=== PATIENT | male | born 1965 | race Caucasian/White ===

== ENCOUNTER 2017-05-14 16:59 | Observation (INO) | payer SELFPAY ==
[~2017-05-14] VITALS: Ht 175.3 cm; Wt 100.0 kg
[~2017-05-14 16:59] MED LIST: AMLO5; ASPI81CH PO; ATOR40TA PO; CLOP75 PO; Cleocin HCl300 MG PO; LISI20 PO; LOSA25; LOSA50 PO; METF500 PO; METO25ER; METO50ER PO; NITR.4SL SL; PIOG30 PO; Percocet 5-3251 EACH PO
[2017-05-14 18:41] LABS: BASOPHILS ABSOLUTE AUTO 0.05 K/mm3 (0.00-0.23); BASOPHILS PERCENT AUTO 1 % (0-2); EOSINOPHILS ABSOLUTE AUTO 0.13 K/mm3 (0.00-0.68); EOSINOPHILS PERCENT AUTO 1 % (0-6); Hemoglobin 17.5 g/dL (13.5-17.5); IMMATURE GRAN ABSOLUTE AUTO 0.06 K/mm3 (0.00-0.10); IMMATURE GRAN PERCENT AUTO 1 % (0-1); LYMPHOCYTES ABSOLUTE AUTO 4.23 K/mm3 (0.84-5.20); LYMPHOCYTES PERCENT AUTO 39 % (21-46); MONOCYTES ABSOLUTE AUTO 0.79 K/mm3 (0.16-1.47); MONOCYTES PERCENT AUTO 7 % (4-13); Mean Corpuscular HGB 31.3 pg (26.0-34.0); Mean Corpuscular Volume 89 fL (80-100); Mean Platelet Volume 11.5 fL (9.1-12.4); NEUTROPHILS ABSOLUTE AUTO 5.66 K/mm3 (1.96-9.15); NEUTROPHILS PERCENT AUTO 52 % (41-73); Platelet Count 192 K/mm3 (150-400); RDW Coefficient Variation 12.6 % (11.7-14.2); RDW Standard Deviation 41.2 fL (35.1-46.3); White Blood Cell Count 10.92 K/mm3 (4.00-11.30)
[2017-05-14 18:52] LABS: Alanine Aminotransfer (ALT/SGP 106 U/L (12-78); Albumin, Blood 3.8 g/dL (3.4-5.0); Alk Phos 157 U/L (50-136); Anion Gap 9 mmol/L (6-16); Aspartate Aminotrans (AST/SGOT 45 U/L (12-37); Bilirubin, Total 0.7 mg/dL (0.1-1.0); Blood Urea Nitrogen 16 mg/dL (8-24); Bun/Creatinine Ratio 24.9 (12.0-20.0); CO2, Blood 23 mmol/L (21-32); Calcium, Blood 8.9 mg/dL (8.5-10.1); Chloride, Blood 107 mmol/L (98-108); Creatinine, Blood 0.64 mg/dL (0.60-1.20); Glomerular Filtration Rate >60 (60-); Glucose, Blood 307 mg/dL (70-99); Potassium, Blood 3.9 mmol/L (3.5-5.5); Sodium, Blood 139 mmol/L (136-145); Total Protein, Blood 7.8 g/dL (6.4-8.2); Troponin I <0.015 ng/mL (0.000-0.040)
[2017-05-15 05:42] LABS: BASOPHILS ABSOLUTE AUTO 0.04 K/mm3 (0.00-0.23); BASOPHILS PERCENT AUTO 1 % (0-2); EOSINOPHILS PERCENT AUTO 2 % (0-6); Hematocrit 45.6 % (37.0-53.0); Hemoglobin 15.8 g/dL (13.5-17.5); IMMATURE GRAN ABSOLUTE AUTO 0.04 K/mm3 (0.00-0.10); IMMATURE GRAN PERCENT AUTO 1 % (0-1); LYMPHOCYTES ABSOLUTE AUTO 2.85 K/mm3 (0.84-5.20); LYMPHOCYTES PERCENT AUTO 43 % (21-46); MONOCYTES ABSOLUTE AUTO 0.57 K/mm3 (0.16-1.47); MONOCYTES PERCENT AUTO 9 % (4-13); Mean Corpuscular HGB Conc 34.6 g/dL (31.5-36.5); Mean Corpuscular Volume 90 fL (80-100); NEUTROPHILS ABSOLUTE AUTO 2.96 K/mm3 (1.96-9.15); NEUTROPHILS PERCENT AUTO 45 % (41-73); Platelet Count 148 K/mm3 (150-400); RDW Coefficient Variation 12.8 % (11.7-14.2); RDW Standard Deviation 42.2 fL (35.1-46.3); Red Blood Cell Count 5.09 M/mm3 (4.30-5.90); White Blood Cell Count 6.56 K/mm3 (4.00-11.30)
[2017-05-15 06:13] LABS: Alanine Aminotransfer (ALT/SGP 90 U/L (12-78); Albumin, Blood 3.1 g/dL (3.4-5.0); Albumin/Globulin Ratio 0.9 (0.8-1.8); Alk Phos 147 U/L (50-136); Anion Gap 6 mmol/L (6-16); Aspartate Aminotrans (AST/SGOT 39 U/L (12-37); Bilirubin, Total 0.3 mg/dL (0.1-1.0); Blood Urea Nitrogen 15 mg/dL (8-24); Bun/Creatinine Ratio 24.1 (12.0-20.0); CO2, Blood 26 mmol/L (21-32); CPK Creatine Kinase 94 U/L (39-308); Calcium, Blood 8.2 mg/dL (8.5-10.1); Chloride, Blood 111 mmol/L (98-108); Creatine Kinase MB 1.1 ng/mL (0.0-3.6); Creatine Kinase MB Index 1.2 (0.0-4.0); Creatinine, Blood 0.62 mg/dL (0.60-1.20); Globulin, Blood 3.3 g/dL (2.2-4.0); Glomerular Filtration Rate >60 (60-); Glucose, Blood 225 mg/dL (70-99); Potassium, Blood 3.9 mmol/L (3.5-5.5); Sodium, Blood 143 mmol/L (136-145); Total Protein, Blood 6.4 g/dL (6.4-8.2); Troponin I <0.015 ng/mL (0.000-0.040)
[2017-05-16 04:07] LABS: BASOPHILS ABSOLUTE AUTO 0.03 K/mm3 (0.00-0.23); BASOPHILS PERCENT AUTO 0 % (0-2); EOSINOPHILS PERCENT AUTO 1 % (0-6); Hematocrit 44.1 % (37.0-53.0); Hemoglobin 15.1 g/dL (13.5-17.5); IMMATURE GRAN ABSOLUTE AUTO 0.06 K/mm3 (0.00-0.10); IMMATURE GRAN PERCENT AUTO 1 % (0-1); LYMPHOCYTES ABSOLUTE AUTO 2.57 K/mm3 (0.84-5.20); LYMPHOCYTES PERCENT AUTO 29 % (21-46); MONOCYTES PERCENT AUTO 8 % (4-13); Mean Corpuscular HGB 30.9 pg (26.0-34.0); Mean Corpuscular HGB Conc 34.2 g/dL (31.5-36.5); Mean Corpuscular Volume 90 fL (80-100); Mean Platelet Volume 11.6 fL (9.1-12.4); NEUTROPHILS PERCENT AUTO 61 % (41-73); Platelet Count 157 K/mm3 (150-400); RDW Standard Deviation 43.3 fL (35.1-46.3); Red Blood Cell Count 4.88 M/mm3 (4.30-5.90); White Blood Cell Count 8.96 K/mm3 (4.00-11.30)
[2017-05-16 04:33] LABS: Anion Gap 5 mmol/L (6-16); Blood Urea Nitrogen 10 mg/dL (8-24); CO2, Blood 26 mmol/L (21-32); Calcium, Blood 8.4 mg/dL (8.5-10.1); Chloride, Blood 110 mmol/L (98-108); Creatinine, Blood 0.71 mg/dL (0.60-1.20); Glomerular Filtration Rate >60 (60-); Glucose, Blood 204 mg/dL (70-99); Sodium, Blood 141 mmol/L (136-145)
[2017-05-16] MEDS ORDERED: LEVEMIR FL100 UNIT/1 SC (14:30)
[2017-05-16] MEDS ORDERED: INSU100I6 SC (14:35)
[2017-05-16] MEDS ORDERED: PANT40 (14:40)
== END 2017-05-16 16:44 | disposition home or self-care (01) ==
LOC: ER 16:59 → ERHOLD 17:00 → PCU 17:00 → ERHOLD 17:00 → ER 17:00 → PCU 05-15 15:16
PROVIDERS: Emergency Medicine; Internal Medicine
DX: R07.9 Chest pain, unspecified (principal); I25.10 Atherosclerotic heart disease of native coronary artery without angina pectoris; I25.2 Old myocardial infarction; I10 Essential (primary) hypertension; E11.9 Type 2 diabetes mellitus without complications; E78.00 Pure hypercholesterolemia, unspecified; R79.89 Other specified abnormal findings of blood chemistry; F17.210 Nicotine dependence, cigarettes, uncomplicated; Z79.82 Long term (current) use of aspirin; Z79.84 Long term (current) use of oral hypoglycemic drugs; Z88.2 Allergy status to sulfonamides; Z88.8 Allergy status to other drugs, medicaments and biological substances; Z95.5 Presence of coronary angioplasty implant and graft; Z79.01 Long term (current) use of anticoagulants; Z79.899 Other long term (current) drug therapy
CPT/HCPCS: 36415; 71046; 76705; 80048; 80053; 82550; 82553; 82947; 83690; 84484; 85025; 93005; 93010; 93454; 96361; 96372; 96374; 99152; 99153; 99285; C1769; C1894; G0378; J0280; J1644; J1650; J1815; J2250; J2405; J2785; J3010; J3480; J7030; Q9967

== ENCOUNTER 2017-12-01 15:21 | Inpatient (IN) | payer OTHER ==
[~2017-12-01] VITALS: Ht 182.9 cm; Wt 104.3 kg
[~2017-12-01 15:21] MED LIST changes: +INSU100I6 SC; +LEVEMIR FL100 UNIT/1 SC; +Metformin HCl500 MG PO; +PANT40 PO
[2017-12-01 15:44] LABS: BASOPHILS ABSOLUTE AUTO 0.05 K/mm3 (0.00-0.23); BASOPHILS PERCENT AUTO 0 % (0-2); EOSINOPHILS ABSOLUTE AUTO 0.04 K/mm3 (0.00-0.68); EOSINOPHILS PERCENT AUTO 0 % (0-6); Hemoglobin 17.1 g/dL (13.5-17.5); IMMATURE GRAN ABSOLUTE AUTO 0.06 K/mm3 (0.00-0.10); IMMATURE GRAN PERCENT AUTO 0 % (0-1); LYMPHOCYTES PERCENT AUTO 24 % (21-46); MONOCYTES ABSOLUTE AUTO 0.91 K/mm3 (0.16-1.47); MONOCYTES PERCENT AUTO 6 % (4-13); Mean Corpuscular HGB 30.9 pg (26.0-34.0); Mean Corpuscular HGB Conc 34.2 g/dL (31.5-36.5); Mean Corpuscular Volume 90 fL (80-100); Mean Platelet Volume 10.5 fL (9.1-12.4); NEUTROPHILS ABSOLUTE AUTO 9.89 K/mm3 (1.96-9.15); NEUTROPHILS PERCENT AUTO 69 % (41-73); Platelet Count 193 K/mm3 (150-400); RDW Coefficient Variation 13.1 % (11.7-14.2); RDW Standard Deviation 43.8 fL (35.1-46.3); Red Blood Cell Count 5.53 M/mm3 (4.30-5.90); White Blood Cell Count 14.45 K/mm3 (4.00-11.30)
[2017-12-01 15:57] LABS: International Normalized Ratio 1.04; Prothrombin Time Results 10.7 Sec (9.7-11.5)
[2017-12-01 16:04] LABS: Alanine Aminotransfer (ALT/SGP 65 U/L (12-78); Albumin, Blood 3.9 g/dL (3.4-5.0); Alk Phos 92 U/L (50-136); Anion Gap 7 mmol/L (6-16); Aspartate Aminotrans (AST/SGOT 88 U/L (12-37); Bilirubin, Total 0.8 mg/dL (0.1-1.0); Blood Urea Nitrogen 10 mg/dL (8-24); Bun/Creatinine Ratio 12.2 (12.0-20.0); CO2, Blood 26 mmol/L (21-32); Calcium, Blood 8.8 mg/dL (8.5-10.1); Chloride, Blood 110 mmol/L (98-108); Creatinine, Blood 0.82 mg/dL (0.60-1.20); Globulin, Blood 3.9 g/dL (2.2-4.0); Glomerular Filtration Rate >60 (60-); Glucose, Blood 107 mg/dL (70-99); Potassium, Blood 3.8 mmol/L (3.5-5.5); Sodium, Blood 143 mmol/L (136-145); Total Protein, Blood 7.8 g/dL (6.4-8.2); Troponin I 0.017 ng/mL (0.000-0.040)
[2017-12-01] MEDS ORDERED: AMLO10 PO (19:46)
[2017-12-01 20:36] LABS: Source, Urine Clean Catch
[2017-12-01 20:43] LABS: Bilirubin, Urine Neg (Neg); Blood, Urine Neg (Neg); Glucose Qualitative, Urine Neg (Neg); Ketones, Urine Neg (Neg); Leukocyte Esterase, Urine Neg (Neg); Nitrite, Urine Neg (Neg); Protein, Urine 1+ (Neg); Urobilinogen, Urine NORM (Normal)
[2017-12-01 20:55] LABS: U Amphetamine Screen Not Detected; U Barbituate Screen Not Detected; U Benzodiazapine Screen Not Detected; U Buprenorphine Screen Not Detected; U Cannabinoids Screen Not Detected; U Cocaine Screen Not Detected; U Methadone Screen Not Detected; U Methamphetamine Screen Not Detected; U Opiates Screen Not Detected; U Oxycodone Screen Not Detected; U Phencyclidine Screen Not Detected; U Propoxyphene Screen Not Detected
[2017-12-01 20:56] LABS: Appearance, Urine Hazy (Clear); Color, Urine Yellow (P-Yellow); White Blood Cells, Urine 0-2 /hpf (0-5)
[2017-12-01 20:57] LABS: Amorphous Light (0-Heavy); Bacteria Rare /hpf; Red Blood Cells, Urine Not Seen /hpf (0-2); Squamous Epithelial Cells Few /hpf (Few)
[2017-12-02 05:57] LABS: BASOPHILS ABSOLUTE AUTO 0.04 K/mm3 (0.00-0.23); BASOPHILS PERCENT AUTO 0 % (0-2); EOSINOPHILS ABSOLUTE AUTO 0.06 K/mm3 (0.00-0.68); EOSINOPHILS PERCENT AUTO 1 % (0-6); Hematocrit 45.5 % (37.0-53.0); Hemoglobin 15.3 g/dL (13.5-17.5); IMMATURE GRAN ABSOLUTE AUTO 0.03 K/mm3 (0.00-0.10); IMMATURE GRAN PERCENT AUTO 0 % (0-1); LYMPHOCYTES ABSOLUTE AUTO 3.17 K/mm3 (0.84-5.20); LYMPHOCYTES PERCENT AUTO 33 % (21-46); MONOCYTES ABSOLUTE AUTO 0.71 K/mm3 (0.16-1.47); MONOCYTES PERCENT AUTO 7 % (4-13); Mean Corpuscular HGB 30.8 pg (26.0-34.0); Mean Corpuscular HGB Conc 33.6 g/dL (31.5-36.5); Mean Corpuscular Volume 92 fL (80-100); NEUTROPHILS ABSOLUTE AUTO 5.57 K/mm3 (1.96-9.15); NEUTROPHILS PERCENT AUTO 58 % (41-73); Platelet Count 169 K/mm3 (150-400); RDW Coefficient Variation 13.2 % (11.7-14.2); RDW Standard Deviation 44.9 fL (35.1-46.3); Red Blood Cell Count 4.96 M/mm3 (4.30-5.90); White Blood Cell Count 9.58 K/mm3 (4.00-11.30)
[2017-12-02 06:27] LABS: Alanine Aminotransfer (ALT/SGP 61 U/L (12-78); Albumin, Blood 3.3 g/dL (3.4-5.0); Albumin/Globulin Ratio 0.9 (0.8-1.8); Alk Phos 73 U/L (50-136); Anion Gap 7 mmol/L (6-16); Aspartate Aminotrans (AST/SGOT 166 U/L (12-37); Bilirubin, Total 0.9 mg/dL (0.1-1.0); Blood Urea Nitrogen 9 mg/dL (8-24); Bun/Creatinine Ratio 12.5 (12.0-20.0); CHOL/HDL RATIO 4.5; CO2, Blood 23 mmol/L (21-32); Chloride, Blood 113 mmol/L (98-108); Cholesterol 145 mg/dL (50-200); Creatinine, Blood 0.72 mg/dL (0.60-1.20); Globulin, Blood 3.6 g/dL (2.2-4.0); Glomerular Filtration Rate >60 (60-); Glucose, Blood 110 mg/dL (70-99); HDL Cholesterol 32 mg/dL (>39); LDL/HDL RATIO 2.8; Low Density Lipoprotein Chol 89 mg/dL (0-110); Potassium, Blood 3.8 mmol/L (3.5-5.5); Sodium, Blood 143 mmol/L (136-145); Total Protein, Blood 6.9 g/dL (6.4-8.2); Triglycerides 122 mg/dL (30-160); Very Low Density Lipoprot Chol 24 mg/dL (6-32)
[2017-12-03 06:07] LABS: BASOPHILS ABSOLUTE AUTO 0.05 K/mm3 (0.00-0.23); BASOPHILS PERCENT AUTO 1 % (0-2); EOSINOPHILS ABSOLUTE AUTO 0.08 K/mm3 (0.00-0.68); EOSINOPHILS PERCENT AUTO 1 % (0-6); Hematocrit 47.9 % (37.0-53.0); IMMATURE GRAN ABSOLUTE AUTO 0.03 K/mm3 (0.00-0.10); IMMATURE GRAN PERCENT AUTO 0 % (0-1); LYMPHOCYTES ABSOLUTE AUTO 3.48 K/mm3 (0.84-5.20); LYMPHOCYTES PERCENT AUTO 39 % (21-46); MONOCYTES ABSOLUTE AUTO 0.76 K/mm3 (0.16-1.47); MONOCYTES PERCENT AUTO 8 % (4-13); Mean Corpuscular HGB 30.8 pg (26.0-34.0); Mean Corpuscular HGB Conc 33.4 g/dL (31.5-36.5); Mean Corpuscular Volume 92 fL (80-100); Mean Platelet Volume 11.3 fL (9.1-12.4); NEUTROPHILS ABSOLUTE AUTO 4.62 K/mm3 (1.96-9.15); NEUTROPHILS PERCENT AUTO 51 % (41-73); Platelet Count 176 K/mm3 (150-400); RDW Standard Deviation 44.2 fL (35.1-46.3); Red Blood Cell Count 5.19 M/mm3 (4.30-5.90); White Blood Cell Count 9.02 K/mm3 (4.00-11.30)
[2017-12-03 06:39] LABS: Anion Gap 10 mmol/L (6-16); Blood Urea Nitrogen 12 mg/dL (8-24); Bun/Creatinine Ratio 15.3 (12.0-20.0); CO2, Blood 23 mmol/L (21-32); Calcium, Blood 8.5 mg/dL (8.5-10.1); Chloride, Blood 110 mmol/L (98-108); Creatinine, Blood 0.78 mg/dL (0.60-1.20); Glomerular Filtration Rate >60 (60-); Glucose, Blood 94 mg/dL (70-99); Potassium, Blood 3.8 mmol/L (3.5-5.5); Sodium, Blood 143 mmol/L (136-145)
[2017-12-03 11:05] LABS: Source, Urine Clean Catch
[2017-12-03 11:21] LABS: Appearance, Urine Clear (Clear); Bilirubin, Urine Neg (Neg); Blood, Urine 4+ (Neg); Color, Urine Yellow (P-Yellow); Glucose Qualitative, Urine Neg (Neg); Ketones, Urine Neg (Neg); Leukocyte Esterase, Urine Neg (Neg); Nitrite, Urine Neg (Neg); Protein, Urine 1+ (Neg); Specific Gravity, Urine 1.015 (1.003-1.022); Urobilinogen, Urine 2+ (Normal)
[2017-12-03 12:32] LABS: Bacteria Few /hpf; Squamous Epithelial Cells Few /hpf (Few)
[2017-12-10 05:00] LABS: BASOPHILS ABSOLUTE AUTO 0.05 K/mm3 (0.00-0.23); BASOPHILS PERCENT AUTO 1 % (0-2); EOSINOPHILS ABSOLUTE AUTO 0.15 K/mm3 (0.00-0.68); EOSINOPHILS PERCENT AUTO 2 % (0-6); Hematocrit 45.6 % (37.0-53.0); Hemoglobin 15.3 g/dL (13.5-17.5); IMMATURE GRAN ABSOLUTE AUTO 0.05 K/mm3 (0.00-0.10); IMMATURE GRAN PERCENT AUTO 1 % (0-1); LYMPHOCYTES ABSOLUTE AUTO 2.89 K/mm3 (0.84-5.20); LYMPHOCYTES PERCENT AUTO 30 % (21-46); MONOCYTES ABSOLUTE AUTO 1.01 K/mm3 (0.16-1.47); MONOCYTES PERCENT AUTO 10 % (4-13); Mean Corpuscular HGB 31.1 pg (26.0-34.0); Mean Corpuscular HGB Conc 33.6 g/dL (31.5-36.5); Mean Corpuscular Volume 93 fL (80-100); Mean Platelet Volume 10.9 fL (9.1-12.4); NEUTROPHILS ABSOLUTE AUTO 5.59 K/mm3 (1.96-9.15); NEUTROPHILS PERCENT AUTO 57 % (41-73); Platelet Count 177 K/mm3 (150-400); RDW Coefficient Variation 12.3 % (11.7-14.2); RDW Standard Deviation 42.3 fL (35.1-46.3); Red Blood Cell Count 4.92 M/mm3 (4.30-5.90); White Blood Cell Count 9.74 K/mm3 (4.00-11.30)
[2017-12-10 05:38] LABS: Anion Gap 6 mmol/L (6-16); Blood Urea Nitrogen 17 mg/dL (8-24); Bun/Creatinine Ratio 21.3 (12.0-20.0); CO2, Blood 27 mmol/L (21-32); Calcium, Blood 8.6 mg/dL (8.5-10.1); Chloride, Blood 109 mmol/L (98-108); Glomerular Filtration Rate >60 (60-); Glucose, Blood 94 mg/dL (70-99); Sodium, Blood 142 mmol/L (136-145)
== END 2017-12-17 14:42 | disposition home or self-care (01) | DRG 66 ==
LOC: ER 15:21 → MEDS 16:03 → ENPENDDIS 12-17 11:44 → MEDS 12-17 14:42
PROVIDERS: Emergency Medicine; Family Medicine; Internal Medicine
DX: I63.231 Cerebral infarction due to unspecified occlusion or stenosis of right carotid arteries (principal); I25.2 Old myocardial infarction; Z87.891 Personal history of nicotine dependence; Z79.82 Long term (current) use of aspirin; I10 Essential (primary) hypertension; I25.10 Atherosclerotic heart disease of native coronary artery without angina pectoris; E78.00 Pure hypercholesterolemia, unspecified; Z95.5 Presence of coronary angioplasty implant and graft; E11.9 Type 2 diabetes mellitus without complications; E78.5 Hyperlipidemia, unspecified; R53.1 Weakness; E66.9 Obesity, unspecified; Z68.31 Body mass index [BMI] 31.0-31.9, adult; R00.1 Bradycardia, unspecified; T44.7X5A Adverse effect of beta-adrenoreceptor antagonists, initial encounter; Y92.239 Unspecified place in hospital as the place of occurrence of the external cause; Z79.4 Long term (current) use of insulin
CPT/HCPCS: 36415; 70450; 70549; 71045; 73502; 80048; 80053; 80061; 81001; 82947; 83036; 84484; 85025; 85610; 85730; 87086; 92507; 92526; 92610; 93005; 93010; 93306; 93880; 96360; 96361; 97110; 97112; 97116; 97162; 97166; 97530; 97533; 97535; 99285-25; A9577; G0515; G8978; G8979; G8987; G8988; G8996; G8997; J1650; J2405; J7030

== ENCOUNTER 2018-02-25 00:43 | Observation (INO) | payer OTHER ==
[~2018-02-25] VITALS: Ht 175.3 cm; Wt 101.2 kg
[~2018-02-25 00:43] MED LIST changes: +AMLO10 PO
[2018-02-25 03:04] LABS: BASOPHILS ABSOLUTE AUTO 0.05 K/mm3 (0.00-0.23); BASOPHILS PERCENT AUTO 0 % (0-2); EOSINOPHILS ABSOLUTE AUTO 0.01 K/mm3 (0.00-0.68); EOSINOPHILS PERCENT AUTO 0 % (0-6); Hematocrit 48.3 % (37.0-53.0); Hemoglobin 16.4 g/dL (13.5-17.5); IMMATURE GRAN ABSOLUTE AUTO 0.08 K/mm3 (0.00-0.10); IMMATURE GRAN PERCENT AUTO 1 % (0-1); LYMPHOCYTES ABSOLUTE AUTO 1.32 K/mm3 (0.84-5.20); LYMPHOCYTES PERCENT AUTO 9 % (21-46); MONOCYTES ABSOLUTE AUTO 1.09 K/mm3 (0.16-1.47); MONOCYTES PERCENT AUTO 7 % (4-13); Mean Corpuscular HGB 30.9 pg (26.0-34.0); Mean Corpuscular Volume 91 fL (80-100); Mean Platelet Volume 10.2 fL (9.1-12.4); NEUTROPHILS ABSOLUTE AUTO 12.17 K/mm3 (1.96-9.15); NEUTROPHILS PERCENT AUTO 83 % (41-73); Platelet Count 203 K/mm3 (150-400); RDW Coefficient Variation 12.7 % (11.7-14.2); RDW Standard Deviation 42.3 fL (35.1-46.3); Red Blood Cell Count 5.31 M/mm3 (4.30-5.90); White Blood Cell Count 14.72 K/mm3 (4.00-11.30)
[2018-02-25 03:22] LABS: Alanine Aminotransfer (ALT/SGP 63 U/L (12-78); Albumin, Blood 4.1 g/dL (3.4-5.0); Albumin/Globulin Ratio 0.9 (0.8-1.8); Alk Phos 106 U/L (50-136); Anion Gap 9 mmol/L (6-16); Aspartate Aminotrans (AST/SGOT 39 U/L (12-37); Bilirubin, Total 0.5 mg/dL (0.1-1.0); Blood Urea Nitrogen 14 mg/dL (8-24); Bun/Creatinine Ratio 11.9 (12.0-20.0); CO2, Blood 24 mmol/L (21-32); Chloride, Blood 107 mmol/L (98-108); Creatinine, Blood 1.18 mg/dL (0.60-1.20); Globulin, Blood 4.4 g/dL (2.2-4.0); Glomerular Filtration Rate >60 (60-); Glucose, Blood 219 mg/dL (70-99); Potassium, Blood 4.2 mmol/L (3.5-5.5); Sodium, Blood 140 mmol/L (136-145); Total Protein, Blood 8.5 g/dL (6.4-8.2)
[2018-02-25 04:00] LABS: Source, Urine Clean Catch
[2018-02-25 04:02] LABS: Bilirubin, Urine Neg (Neg); Blood, Urine 5+ (Neg); Glucose Qualitative, Urine 3+ (Neg); Ketones, Urine 1+ (Neg); Leukocyte Esterase, Urine Neg (Neg); Nitrite, Urine Neg (Neg); Protein, Urine 2+ (Neg); Specific Gravity, Urine 1.015 (1.003-1.022); Urobilinogen, Urine NORM (Normal)
[2018-02-25 04:07] LABS: Appearance, Urine Cloudy (Clear); Color, Urine Amber (P-Yellow); White Blood Cells, Urine 0-2 /hpf (0-5)
[2018-02-25 04:08] LABS: Bacteria Mod /hpf; Red Blood Cells, Urine TNTC /hpf (0-2); Squamous Epithelial Cells Few /hpf (Few); Yeast/Fungi Urine Few /hpf
[2018-02-25] MEDS ORDERED: TAMS.4ER PO (09:17)
[2018-02-25] MEDS ORDERED: MELO7.5 PO (09:21)
--- NOTE | 2018-02-25 10:28 | NUR ---
HTN SPOKE WITH HOSPITALIST R/T PAIN MANAGEMENT, HTN, AND EMESIS.
[2018-02-25 11:10] LABS: Prothrombin Time Results 10.3 Sec (9.7-11.5)
--- NOTE | 2018-02-25 18:08 | NUR ---
PT TO DAY SURGERY FOR SCOPE BY DR KRAUS
--- NOTE | 2018-02-25 18:16 | NUR ---
History, Chart, Medications and Allergies reviewed before start of procedure. Patient confirms NPO status and agrees with scheduled surgery.
--- NOTE | 2018-02-25 18:39 | NUR ---
02/25/18 1839 Mil Ramachandran History, Chart, Medications and Allergies reviewed before start of procedure.MONITOR INTACT WITH CONTINUOUS PULSE OXIMETRY AND INTERMITTENT BP.3-LEAD EKG REVIEWED WITH PHYSICIAN PRIOR TO START OF PROCEDURE.O2 VIA N/C INTACT THROUGHOUT SEDATION/PROCEDURE. Patient confirms NPO status and agrees with scheduled surgery.PATIENT DETERMINED TO BE ASA APPROPRIATE FOR PROPOFOL SEDATION PRIOR TO START OF PROCEDURE BY DR. KRAUS.
[2018-02-26 05:46] LABS: Hematocrit 44.8 % (37.0-53.0); Mean Corpuscular HGB 30.6 pg (26.0-34.0); Mean Corpuscular HGB Conc 33.5 g/dL (31.5-36.5); Mean Corpuscular Volume 91 fL (80-100); Mean Platelet Volume 10.3 fL (9.1-12.4); Platelet Count 177 K/mm3 (150-400); RDW Coefficient Variation 13.3 % (11.7-14.2); RDW Standard Deviation 45.4 fL (35.1-46.3); White Blood Cell Count 10.14 K/mm3 (4.00-11.30)
[2018-02-26 06:16] LABS: Albumin, Blood 3.5 g/dL (3.4-5.0); Albumin/Globulin Ratio 0.9 (0.8-1.8); Bilirubin, Total 0.8 mg/dL (0.1-1.0); Bun/Creatinine Ratio 11.8 (12.0-20.0); Calcium, Blood 8.8 mg/dL (8.5-10.1); Creatinine, Blood 1.44 mg/dL (0.60-1.20); Globulin, Blood 3.9 g/dL (2.2-4.0); Potassium, Blood 3.7 mmol/L (3.5-5.5); Total Protein, Blood 7.4 g/dL (6.4-8.2)
[2018-02-26] MEDS ORDERED: INSULANPEN SC (09:11)
[2018-02-26] MEDS ORDERED: METO50ER PO (09:12)
[2018-02-26] MEDS ORDERED: OXYC5 PO (09:14)
--- NOTE | 2018-02-26 10:48 | NUR ---
DISCHARGE PT AND EDUCATED ON AND RECEIVED PRINTED DC INSTRUCTIONS. BOTH VERB AN UNDERSTANDING. VERB THAT SHE WOULD SCHEDULE PCP APPT IN 2 WEEKS. UROLOGY APPT SCHEDULED PER PT. RX FAXED TO [facility] IN [place]. PT GATHERING ALL PERSONAL BELONGINGS. IV DC'D. ESCORTING OUT VIA W/C. LAB SLIP FOR F/U LABS GIVEN TO PT.
== END 2018-02-26 10:57 | disposition home or self-care (01) ==
LOC: ER 00:43 → ERHOLD 00:44 → SURS 00:44
PROVIDERS: Emergency Medicine; Internal Medicine Gastroenterology; ADMIT Internal Medicine
PROC: 0DJ08ZZ Inspection of Upper Intestinal Tract, Via Natural or Artificial Opening Endoscopic (ICD-10-PCS; principal; 2018-02-25 17:30)
DX: K29.60 Other gastritis without bleeding (principal); K29.80 Duodenitis without bleeding; K20.9 Esophagitis, unspecified; K25.9 Gastric ulcer, unspecified as acute or chronic, without hemorrhage or perforation; K92.0 Hematemesis; I25.10 Atherosclerotic heart disease of native coronary artery without angina pectoris; I25.2 Old myocardial infarction; E11.9 Type 2 diabetes mellitus without complications; E78.5 Hyperlipidemia, unspecified; K76.0 Fatty (change of) liver, not elsewhere classified; I16.0 Hypertensive urgency; Z86.73 Personal history of transient ischemic attack (TIA), and cerebral infarction without residual deficits; Z95.5 Presence of coronary angioplasty implant and graft; Z79.82 Long term (current) use of aspirin; Z79.02 Long term (current) use of antithrombotics/antiplatelets; Z79.899 Other long term (current) drug therapy; Z87.11 Personal history of peptic ulcer disease; Z87.891 Personal history of nicotine dependence
CPT/HCPCS: 36415; 74176; 80053; 81001; 82947; 83690; 84484; 85025; 85027; 85610; 87086; 96365; 96366; 96375; 96376; 99285-25; C9113; G0378; J0360; J1170; J2250; J2405; J3010; J7120

== ENCOUNTER 2018-08-05 07:39 | Day surgery (SDC) | payer OTHER ==
[~2018-08-05 07:39] MED LIST changes: +CARV6.25 PO; +CO Q1060 MG PO; +COENZYME Q PO; +INSULANPEN SC; +MELO7.5 PO; +OXYB5 PO; +OXYC5 PO; +TAMS.4ER PO; +VENL150ER PO
--- NOTE | 2018-08-05 08:13 | NUR ---
PATIENT REPORTS HE DID NOT FINISH ALL OF HIS PREP THIS MORNING DUE TO INABILITY TO TOLERATE, AND HIS RESULTS ARE NOT YET CLEAR. PATIENT IN BR NOW AND ONCE ASSESSED, I WILL REPORT TO DR FERRIS. History, Chart, Medications and Allergies reviewed before start of procedure. Patient confirms NPO status and agrees with scheduled surgery. Lungs clear T/O to Auscultation. Patient States Post-Procedure ride home has been arranged VIA MEDICAL TRANSPORT. Pre-Op teaching done. Pt verbalizes understanding.
--- NOTE | 2018-08-05 08:40 | NUR ---
PATIENT WITH DARK BROWN AND CLOUDY RESULTS AT ADMIT TO [facility], NO SOLIDS NOTED. DR FERRIS NOTIFIED IMMEDIATELY AND NEW ORDERS RECEIVED. PATIENT B/P HIGH. RECHECKED WITH UPPER ARM CUFF AND CONTINUED TO BE HIGH. DR FERRIS NOTIFIED AND WILL BE BY THE BEDSIDE TO TALK WITH THE PATIENT. AT BEDSIDE NOW.
--- NOTE | 2018-08-05 08:47 | NUR ---
DR FERRIS AT BEDSIDE NOW. PATIENT WILL BE RESCHEDULED FOR A FUTURE DATE. PATIENT IS TO TAKE HIS CARVEDILOL SOON HE GETS HOME PER DR FERRIS, OK TO DISHCARGE. PATIENT AND VERBALIZE UNDERSTANDING.
--- NOTE | 2018-08-05 08:55 | NUR ---
PATIENT UP AND DRESSED, WILL CALL TRANSPORT FOR TRIP HOME. REITERATED TO PATIENT TO BE CERTAIN TO TAKE HIS CARVEDILOL AND OTHER MEDICATIONS WHEN HE GOES HOME TODAY. PATIENT D/C HOME VIA WC DUE TO BASELINE L SIDED WEAKNESS.
== END 2018-08-05 22:56 | disposition home or self-care (01) ==
LOC: ORSCMMR 07:39 → ORD 09:00 → ORSCMMR 09:00
DX: R10.13 Epigastric pain (principal); Z12.11 Encounter for screening for malignant neoplasm of colon; Z53.9 Procedure and treatment not carried out, unspecified reason
CPT/HCPCS: J7120

== ENCOUNTER 2018-09-10 08:45 | Day surgery (SDC) | payer OTHER ==
[~2018-09-10] VITALS: Ht 175.3 cm; Wt 96.4 kg
--- NOTE | 2018-09-10 10:45 | NUR ---
Ambulatory in Day Surgery UTILIZING CANE.HX CVA WITH LEFT SIDED WEAKNESS. History, Chart, Medications and Allergies reviewed before start of procedure.LUNGS TIGHT AND DIMINISHED THROUGH OUT. PT REPORTS MILD SOB FROM "[place]MO[place]." Patient confirms NPO status and agrees with scheduled surgery. Patient States Post-Procedure ride home has been arranged.
--- NOTE | 2018-09-10 11:54 | NUR ---
09/10/18 1154 [place] PATIENT DETERMINED TO BE ASA APPROPRIATE FOR PROPOFOL SEDATION PRIOR TO START OF PROCEDURE BY 3-LEAD EKG REVIEWED WITH PHYSICIAN PRIOR TO START OF PROCEDURE.Patient to ENDO 1History, Chart, Medications and Allergies reviewed before start of procedure.MONITOR INTACT WITH CONTINUOUS PULSE OXIMETRY AND INTERMITTENT BP.O2 VIA N/C INTACT THROUGHOUT SEDATION/PROCEDURE.
--- NOTE | 2018-09-10 13:05 | NUR ---
Discharge instructions reviewed with patient. Patient verbalizes understanding. Copy given to patient to take home. Discharged via wheelchair to for [facility] transport.
== END 2018-09-10 22:33 | disposition home or self-care (01) ==
LOC: ORSCMMR 08:45 → ORD 11:00 → ORSCMMR 22:33
PROVIDERS: Internal Medicine Gastroenterology
PROC: 0DB48ZX Excision of Esophagogastric Junction, Via Natural or Artificial Opening Endoscopic, Diagnostic (ICD-10-PCS; principal; 2018-09-10 11:00)
PROC: 0DB68ZX Excision of Stomach, Via Natural or Artificial Opening Endoscopic, Diagnostic (ICD-10-PCS; principal; 2018-09-10 11:00)
DX: R10.13 Epigastric pain (principal); K21.9 Gastro-esophageal reflux disease without esophagitis; K29.70 Gastritis, unspecified, without bleeding; I25.2 Old myocardial infarction; I25.10 Atherosclerotic heart disease of native coronary artery without angina pectoris; I10 Essential (primary) hypertension; E11.9 Type 2 diabetes mellitus without complications; E78.00 Pure hypercholesterolemia, unspecified; Z86.73 Personal history of transient ischemic attack (TIA), and cerebral infarction without residual deficits; Z87.891 Personal history of nicotine dependence; Z79.82 Long term (current) use of aspirin
CPT/HCPCS: 82947; 88305; 88342; J2250; J2704; J7120

== ENCOUNTER 2019-04-16 11:12 | Observation (INO) | payer OTHER ==
[~2019-04-16] VITALS: Ht 175.3 cm; Wt 99.3 kg
[~2019-04-16 11:12] MED LIST changes: -ATOR40TA PO; +ATOR80 PO; +METF500C PO; -Metformin HCl500 MG PO
[2019-04-16 11:43] LABS: BASOPHILS ABSOLUTE AUTO 0.04 K/mm3 (0.00-0.23); BASOPHILS PERCENT AUTO 1 % (0-2); EOSINOPHILS ABSOLUTE AUTO 0.04 K/mm3 (0.00-0.68); EOSINOPHILS PERCENT AUTO 1 % (0-6); Hematocrit 49.6 % (37.0-53.0); IMMATURE GRAN ABSOLUTE AUTO 0.03 K/mm3 (0.00-0.10); IMMATURE GRAN PERCENT AUTO 0 % (0-1); LYMPHOCYTES PERCENT AUTO 37 % (21-46); MONOCYTES ABSOLUTE AUTO 0.76 K/mm3 (0.16-1.47); MONOCYTES PERCENT AUTO 9 % (4-13); Mean Corpuscular HGB 31.2 pg (26.0-34.0); Mean Corpuscular HGB Conc 34.3 g/dL (31.5-36.5); Mean Corpuscular Volume 91 fL (80-100); Mean Platelet Volume 10.6 fL (9.1-12.4); NEUTROPHILS ABSOLUTE AUTO 4.58 K/mm3 (1.96-9.15); NEUTROPHILS PERCENT AUTO 53 % (41-73); Platelet Count 191 K/mm3 (150-400); RDW Coefficient Variation 12.8 % (11.7-14.2); RDW Standard Deviation 42.4 fL (35.1-46.3); Red Blood Cell Count 5.45 M/mm3 (4.30-5.90); White Blood Cell Count 8.65 K/mm3 (4.00-11.30)
[2019-04-16] MEDS ORDERED: ACET500 PO (11:52)
[2019-04-16 11:53] LABS: Alanine Aminotransfer (ALT/SGP 40 U/L (12-78); Anion Gap 6 mmol/L (6-16); Aspartate Aminotrans (AST/SGOT 26 U/L (12-37); Bilirubin, Total 0.4 mg/dL (0.1-1.0); Blood Urea Nitrogen 9 mg/dL (8-24); Bun/Creatinine Ratio 12.3 (12.0-20.0); CO2, Blood 24 mmol/L (21-32); Chloride, Blood 113 mmol/L (98-108); Creatinine, Blood 0.73 mg/dL (0.60-1.20); Globulin, Blood 3.9 g/dL (2.2-4.0); Glomerular Filtration Rate >60 (60-); Glucose, Blood 81 mg/dL (70-99); Potassium, Blood 3.7 mmol/L (3.5-5.5); Sodium, Blood 143 mmol/L (136-145); Total Protein, Blood 7.9 g/dL (6.4-8.2)
[2019-04-16 11:56] LABS: Alk Phos 97 U/L (50-136); Troponin I <0.015 ng/mL (0.000-0.040)
[2019-04-16] MEDS ORDERED: NITR.4SL SL (11:56)
[2019-04-16] MEDS ORDERED: TAMS.4ER PO (12:33)
--- NOTE | 2019-04-16 19:43 | NUR ---
NEW ER ADMIT THIS AFTERNOON APPROX 1630. PT IS A/O X4, STATE HE WAS @ PCP OFFICE THIS AM & HAD EPISODE OF SHARP MID CHEST PAIN, WAS SENT TO ER BY PCP. ER REPORT THAT CHEST PAIN SUBSIDE AFTER TX w NITRO, ECHO DONE, PT BEING ADMITTED FOR OBS OVERNITE. TELE PLACED SR-SBRADY 50-60'S. NS @ 75 ML/HR. PT STATE HX CVA w L SIDED WEAKNESS, FALL PRECAUTIONS REVIEWED w PT. HE IS PLEASANT/COOPERATIVE. STATE NO PAIN @ THIS TIME. ELEVATED BP, DR NOTIFIED, ORDER FOR PRN HYDRALAZINE. REPORT TO NOC SHOAIB.
[2019-04-17 05:12] LABS: Alanine Aminotransfer (ALT/SGP 33 U/L (12-78); Albumin, Blood 3.3 g/dL (3.4-5.0); Alk Phos 78 U/L (50-136); Anion Gap 4 mmol/L (6-16); Aspartate Aminotrans (AST/SGOT 25 U/L (12-37); Bilirubin, Total 0.4 mg/dL (0.1-1.0); Blood Urea Nitrogen 13 mg/dL (8-24); Bun/Creatinine Ratio 16.1 (12.0-20.0); CO2, Blood 26 mmol/L (21-32); Calcium, Blood 8.9 mg/dL (8.5-10.1); Chloride, Blood 114 mmol/L (98-108); Creatinine, Blood 0.81 mg/dL (0.60-1.20); Globulin, Blood 3.4 g/dL (2.2-4.0); Glomerular Filtration Rate >60 (60-); Glucose, Blood 95 mg/dL (70-99); Potassium, Blood 3.7 mmol/L (3.5-5.5); Sodium, Blood 144 mmol/L (136-145); Total Protein, Blood 6.7 g/dL (6.4-8.2)
[2019-04-17] MEDS ORDERED: PANT40 PO (14:40)
[2019-04-17] MEDS ORDERED: VENL150ER PO (14:41)
[2019-04-17] MEDS ORDERED: TAMS.4ER PO (14:41)
--- NOTE | 2019-04-17 15:30 | NUR ---
DISCHARGE PT CONTINUES TO STATE NO FURTHER CHEST PAIN, NO N/T OR SOB. STATE FEELS @ BASELINE HOPEFUL TO GO HOME. TELE REPORT SR-MONSERRAT 50-60. DR MAYORGA IN TO HIM, REVIEW RESULTS OF TESTS, LABS. STATE HE MAY GO HOME TODAY & F/U w PCP FOR OUTPT STRESS TEST, PLACE D/C ORDERS. IV D/C INTACT. [facility]REQUEST. F/U w PCP ARRANGED. PT DRESS & GATHER BELONGINGS IND. HE STATE USES [facility] [employer] FOR TANSPORTATION, [employer] DANIEL STATE WILL ARRANGE TRANSPORTATION. PT IS PLEASANT/APPRECIATIVE, UP AMB IN [place] w CANE WAITING FOR RIDE HOME.
== END 2019-04-17 16:06 | disposition home or self-care (01) ==
LOC: ER 11:12 → ERHOLD 11:13 → MEDS 16:55
PROVIDERS: Emergency Medicine; Nurse Practitioner Acute Care; ADMIT Hospitalist
DX: R07.89 Other chest pain (principal); E11.9 Type 2 diabetes mellitus without complications; I10 Essential (primary) hypertension; K21.9 Gastro-esophageal reflux disease without esophagitis; K27.9 Peptic ulcer, site unspecified, unspecified as acute or chronic, without hemorrhage or perforation; N40.0 Benign prostatic hyperplasia without lower urinary tract symptoms; F17.210 Nicotine dependence, cigarettes, uncomplicated; E78.5 Hyperlipidemia, unspecified; I25.2 Old myocardial infarction; Z23 Encounter for immunization; Z95.5 Presence of coronary angioplasty implant and graft; Z86.73 Personal history of transient ischemic attack (TIA), and cerebral infarction without residual deficits; Z88.0 Allergy status to penicillin; Z88.6 Allergy status to analgesic agent; Z79.02 Long term (current) use of antithrombotics/antiplatelets; Z79.84 Long term (current) use of oral hypoglycemic drugs; Z79.899 Other long term (current) drug therapy; Z91.14 Patient's other noncompliance with medication regimen
CPT/HCPCS: 36415; 71046; 80053; 82947; 83735; 84484; 85025; 90686; 93005; 93010; 93306; 99285-25; A9270-GY; J1650; J7030

== ENCOUNTER 2019-05-16 12:42 | Observation (INO) | payer OTHER ==
[~2019-05-16] VITALS: Ht 175.3 cm; Wt 98.6 kg
[~2019-05-16 12:42] MED LIST changes: +ACET500 PO
[2019-05-16 13:30] LABS: BASOPHILS ABSOLUTE AUTO 0.03 K/mm3 (0.00-0.23); BASOPHILS PERCENT AUTO 1 % (0-2); EOSINOPHILS ABSOLUTE AUTO 0.06 K/mm3 (0.00-0.68); EOSINOPHILS PERCENT AUTO 1 % (0-6); Hematocrit 50.7 % (37.0-53.0); Hemoglobin 17.4 g/dL (13.5-17.5); IMMATURE GRAN ABSOLUTE AUTO 0.01 K/mm3 (0.00-0.10); IMMATURE GRAN PERCENT AUTO 0 % (0-1); LYMPHOCYTES ABSOLUTE AUTO 2.17 K/mm3 (0.84-5.20); LYMPHOCYTES PERCENT AUTO 39 % (21-46); MONOCYTES ABSOLUTE AUTO 0.45 K/mm3 (0.16-1.47); MONOCYTES PERCENT AUTO 8 % (4-13); Mean Corpuscular HGB Conc 34.3 g/dL (31.5-36.5); Mean Corpuscular Volume 90 fL (80-100); NEUTROPHILS ABSOLUTE AUTO 2.81 K/mm3 (1.96-9.15); NEUTROPHILS PERCENT AUTO 51 % (41-73); Platelet Count 218 K/mm3 (150-400); RDW Coefficient Variation 12.8 % (11.7-14.2); RDW Standard Deviation 42.6 fL (35.1-46.3); Red Blood Cell Count 5.62 M/mm3 (4.30-5.90); White Blood Cell Count 5.53 K/mm3 (4.00-11.30)
[2019-05-16 14:11] LABS: Alanine Aminotransfer (ALT/SGP 39 U/L (12-78); Albumin, Blood 3.8 g/dL (3.4-5.0); Alk Phos 102 U/L (50-136); Anion Gap 5 mmol/L (6-16); Aspartate Aminotrans (AST/SGOT 31 U/L (12-37); Bilirubin, Total 0.2 mg/dL (0.1-1.0); Blood Urea Nitrogen 15 mg/dL (8-24); Bun/Creatinine Ratio 19.6 (12.0-20.0); CO2, Blood 26 mmol/L (21-32); Calcium, Blood 9.3 mg/dL (8.5-10.1); Chloride, Blood 114 mmol/L (98-108); Creatinine, Blood 0.77 mg/dL (0.60-1.20); Globulin, Blood 3.7 g/dL (2.2-4.0); Glomerular Filtration Rate >60 (60-); Glucose, Blood 94 mg/dL (70-99); Potassium, Blood 3.8 mmol/L (3.5-5.5); Sodium, Blood 145 mmol/L (136-145); Total Protein, Blood 7.5 g/dL (6.4-8.2); Troponin I <0.015 ng/mL (0.000-0.040)
[2019-05-16] MEDS ORDERED: NITRO-DUR1 EAC1 TOP (15:07)
--- NOTE | 2019-05-16 18:31 | NUR ---
PT ADMITTED FROM ER THIS SHIFT. HE IS ALERT AND ORIENTED AND ABLE TO EXPRESS ANY NEEDS. HE USES A CANE TO AMBULATE DUE TO PREVIOUS CVA. PT ON TELE. NO DISTRESS NOTED. TROPS NEGATIVE.
[2019-05-17 00:07] LABS: Source, Urine Clean Catch
[2019-05-17 00:11] LABS: Bilirubin, Urine Neg (Neg); Blood, Urine Neg (Neg); Glucose Qualitative, Urine Neg (Neg); Ketones, Urine Neg (Neg); Leukocyte Esterase, Urine Neg (Neg); Nitrite, Urine Neg (Neg); Protein, Urine Neg (Neg); Specific Gravity, Urine 1.025 (1.003-1.022); Urobilinogen, Urine 1+ (Normal)
[2019-05-17 00:23] LABS: Appearance, Urine Clear (Clear); Color, Urine Yellow (P-Yellow)
[2019-05-17 04:55] LABS: Anion Gap 5 mmol/L (6-16); Blood Urea Nitrogen 17 mg/dL (8-24); Bun/Creatinine Ratio 21.3 (12.0-20.0); CO2, Blood 27 mmol/L (21-32); Calcium, Blood 9.1 mg/dL (8.5-10.1); Chloride, Blood 112 mmol/L (98-108); Glomerular Filtration Rate >60 (60-); Glucose, Blood 86 mg/dL (70-99); Potassium, Blood 3.7 mmol/L (3.5-5.5); Sodium, Blood 144 mmol/L (136-145)
--- NOTE | 2019-05-17 07:40 | NUR ---
05/17/19 0545 SLEPT WELL. VITALS STABLE. NO COMPLAINTS OF CHEST OR OTHER DISCOMFORT. HEART MONITOR STABLE AT SR IN THE 70'S. LEFT SIDE DEFICIT FROM OLD STROKE,
--- NOTE | 2019-05-17 11:50 | NUR ---
PARTIAL ECHOCARDIOGRAM COMPLETE
--- NOTE | 2019-05-17 18:36 | NUR ---
SUMMARY- PT ALERT AND ORIENTED. VERBAL AND COOPERATIVE. INDEPENDANT WITH URINAL AT BEDSIDE AND MEALS. AMBULATES ABS RELATED TO L WEAKNESS FROM OLD CVA. PT STATES HE HAS HAD CHEST PRESURE 3/10 INTERMITTANT APPROX 5 TIMES IN THE 12 HR SHIFT. ONE TOME HIS R FACE FELT HOT AND FLUSHED. TELE SHOWS RR 60'S. TROPS REMAIN NEGATIVE. PT TO BE NPO AFTER MN PLAN FOR CARDIAC CATH IN AM. PT INSTRUCTED TO CALL IF CHEST PAIN INCREASES OF FEELS DIFFERENT. ECHO DONE AWAITING RESULTS TO BE READ. BLOOD SUGARS STABLE IN 90'S.
--- NOTE | 2019-05-18 05:42 | NUR ---
Rn summary: Patient is alert and oriented. Pt states he has only rested fair. Patient states he has some mild anginal pain, reminded at beginning of shift to call if he is having pain, nausia, SOB and diaphoresis. Pt is SR to SB on telemetry. Pt has residual L sided weakness from an old CVA. Pt has been NPO for angiogram this am. Breath sounds diminished posteriorly. Uses call light appropriately. Will continue to monitor.
--- NOTE | 2019-05-18 07:49 | NUR ---
Patient heading down for angiogram. NPO, no morning meds given.
--- NOTE | 2019-05-18 09:30 | NUR ---
PT ADMITTED TO THE FLOOR FROM THE HR CENTER POST ANGIO. TR BAND TO RIGHT RADIAL SIGHT INTACT, NO S/S OF HEMATOMA NOTED. ARM BOARD IN PLACE. PT INSTRUCTED ON ACTIVITY RESTRICTIONS. VSS, ON ROOM AIR.
--- NOTE | 2019-05-18 09:56 | NUR ---
Transfer of Care Patient transferred to PCU 08 from Med 337. Report given to [facility] receiving nurse. Patient had angiogram procedure this AM, this RN was not able to start shift assessment or pass morning meds, this was relayed to receiving nurse. 1p SBA c cane as baseline, uses urinal at bedside, calls appropriately.
[2019-05-18] MEDS ORDERED: Isosorbide Mono30 MG PO (16:41)
--- NOTE | 2019-05-18 18:07 | NUR ---
PT D/C TO HOME VIA [facility] [employer]. PT WAS GIVEN D/C INSTRUCTIONS & RX. D/C INSTRUCTIONS EXPLAINED IN DETAIL. PT STATES UNDERSTANDING. FOLLOW UP APPOINTMENT MADE. TR BAND REMOVED WNL, NO S/S OF HEMATOMA/BLEEDING NOTED, TEGADERM DRSG PLACED, ARMBOARD IN PLACE. ACTIVITY RESTRICTIONS ENFORCED. PT INSTRUCTED TO FOLLOW UP [facility] FOR ANY PROBLEMS OR CONCERNS. VSS, RESP UNLABORED, PT CONTINUES TO DENY CP/PRESSURE.
== END 2019-05-18 17:37 | disposition home or self-care (01) ==
LOC: ER 12:42 → MEDS 12:43 → PCU 05-18 09:08
PROVIDERS: Physician Assistant; ADMIT Internal Medicine
DX: I25.110 Atherosclerotic heart disease of native coronary artery with unstable angina pectoris (principal); I10 Essential (primary) hypertension; E11.9 Type 2 diabetes mellitus without complications; I65.29 Occlusion and stenosis of unspecified carotid artery; E78.5 Hyperlipidemia, unspecified; K21.9 Gastro-esophageal reflux disease without esophagitis; N40.0 Benign prostatic hyperplasia without lower urinary tract symptoms; F17.210 Nicotine dependence, cigarettes, uncomplicated; Z95.1 Presence of aortocoronary bypass graft; Z86.73 Personal history of transient ischemic attack (TIA), and cerebral infarction without residual deficits; Z88.1 Allergy status to other antibiotic agents; Z88.6 Allergy status to analgesic agent; Z79.899 Other long term (current) drug therapy; Z79.01 Long term (current) use of anticoagulants; Z79.84 Long term (current) use of oral hypoglycemic drugs
CPT/HCPCS: 36415; 71046; 80048; 80053; 81003; 82947; 83036; 83880; 84484; 85025; 85347; 93005; 93010; 93308; 93321; 93458; 93571; 96372; 99152; 99153; 99285-25; A9270; A9270-GY; C1769; C1887; C1894; G0378; J1644; J1650; J2250; J3010; J7030; Q9967